=== PATIENT | female | born 1970 | race Caucasian/White ===

== ENCOUNTER 2018-10-09 20:24 | Emergency (ER) | payer MEDICAID ==
[~2018-10-09] VITALS: Ht 165.1 cm; Wt 71.7 kg
[2018-10-09 20:27] VITALS: Ht 165.1 cm; Wt 71.7 kg
--- NOTE | 2018-10-09 21:27 | ERD ---
ER Documentation Chief Complaint Chief Complaint Hives to generalized body since yesterday +itchy. states took benadryl HPI 48-year-old female, previously healthy, presents to the emergency department, complaining of acute onset of generalized hives that started yesterday. The patient denies any possible culprit like new medications, suspicious food, chemical contacts. The patient denies shortness of breath, no sore throat, no difficulty swallowing. The patient took Benadryl this morning without improvement of the symptoms. ROS All systems reviewed and are negative except as per history of present illness. Medications Home Meds Active Scripts Diphenhydramine Hcl* (Benadryl*) 50 Mg Cap, 50 MG PO Q6H PRN for ITCHING/RASH, #15 CAP Prov:GHADA POLANCO MD 10/09/18 Prednisone* (Prednisone*) 20 Mg Tab, 40 MG PO DAILY for 5 Days, TAB Prov:GHADA POLANCO MD 10/09/18 Allergies Allergies: Coded Allergies: penicillin G (Unverified Allergy, Unknown, 10/09/18) PMhx/Soc History of Surgery: Yes (c section) Anesthesia Reaction: No Hx Neurological Disorder: No Hx Respiratory Disorders: No Hx Cardiac Disorders: No Hx Psychiatric Problems: No Hx Miscellaneous Medical Probl: No Hx Alcohol Use: No Hx Substance Use: No Hx Tobacco Use: No Smoking Status: Never smoker FmHx Family History: No diabetes, No coronary disease Physical Exam Vitals Vital Signs Date Temp Pulse Resp B/P (MAP) Pulse Ox O2 O2 Flow FiO2 Time Delivery Rate 10/09/18 97.8 72 18 140/79 97 20:27 (99) Physical Exam Const: No acute distress Head: Atraumatic Eyes: Normal Conjunctiva ENT: Normal External Ears, Nose and Mouth. Neck: Full range of motion. No meningismus. Resp: Clear to auscultation bilaterally Cardio: Regular rate and rhythm, no murmurs Abd: Soft, non tender, non distended. Normal bowel sounds Skin: Diffuse, generalized urticarial rash. Back: No midline or flank tenderness Ext: No cyanosis, or edema Neur: Awake and alert Psych: Normal Mood and Affect Results 24 hrs Current Medications Medications Dose Sig/Radha Start Time Status Last (Trade) Ordered Route PRN Stop Time Admin Dose Reason Admin 8 mg ONCE ONCE 10/09/18 DC 10/09/18 Dexamethasone IM 21:30 10/09/18 21:34 (Decadron) 21:31 50 mg ONCE ONCE 10/09/18 DC 10/09/18 Diphenhydrami IM 21:30 10/09/18 21:35 ne HCl 21:31 (Benadryl) Ranitidine 300 mg ONCE ONCE 10/09/18 DC 10/09/18 HCl PO 21:30 10/09/18 21:33 (Zantac) 21:31 Procedures/MDM Differential diagnosis include but not limited to: Viral exanthema, acute allergic reaction, autoimmune dermatitis, medication side effect, low suspicion for angioedema, anaphylactic shock, Moses-Zachary syndrome. Physical examination and clinical presentation consistent most likely with acute allergic urticaria During the ED course the patient remained hemodynamically stable stable, no new complaints. The patient received treatment with IM. steroids, IM Benadryl presenting overall improvement of the symptoms. Results and clinical impression discussed with the parent who agrees with management. The patient is stable to be treated outpatient and will be discharged home with a Rx for prednisone and Benadryl, some side effects of prescribed medications (headache, rash, nausea, vomiting, diarrhea, drowsiness, interactions with other medications) were reviewed. The patient was instructed to follow up with the primary care provider in the next 48h. If symptoms persist, worsen or new symptoms develop, then patient should return to the ED immediately. Instructions explained and given directly by me with acknowledgment and demonstrated understanding. Disclaimer: Inadvertent spelling and grammatical errors are likely due to EHR/dictation software use and do not reflect on the overall quality of patient care. Also, please note that the electronic time recorded on this note does not necessarily reflect the actual time of the patient encounter. Departure Diagnosis: Primary Impression: Acute urticaria Condition: Stable Additional Instructions: Muchas vito por [facility] para borrero servicio. Esperamos que en borrero visita a la daly de emergencia borrero problema medico haya sido solucionado y que se sienta mucho mejor. Para estar seguros que borrero mejoria sigue en proceso, le pedimos el favor de hacer wendie nohemi de seguimiento medico con borrero doctor primario en los proximos 2-4 waggoner. Lleve con usted estos documentos y las medicinas recetadas. Si ketan sintomas empeoran, NO SE ESPERE, por favor regrese a daly de emergencia INMEDIATAMENTE. En rinku que usted no tenga un mdico de atencin primaria: Llame al mdico o clnica comunitaria de referencia que aparece abajo jessica las horas de consultorio para hacer wendie nohemi para que le vean. CLINICAS: [facility] [id number] [facility] [phone] [facility] [phone] [facility] [phone] [facility] [phone] [id number] [facility] [phone] GHADA LEE MD Oct 09, 2018 21:27
[2018-10-09] MEDS ORDERED: RANITIDINE 150 MG TAB PO ONE (21:30)
[2018-10-09] MEDS ORDERED: DIPHENHYDRAMINE 50 MG INJ IM ONE (21:30)
[2018-10-09] MEDS ORDERED: DEXAMETHASONE 10 MG/ML 1 ML INJ IM ONE (21:30)
[2018-10-09] MEDS ORDERED: PRED20TA PO (21:57)
[2018-10-09] MEDS ORDERED: BEN50 PO (21:57)
[2018-10-09 22:17] VITALS: BP 140/71; PULSE 67; RESP 18
== END 2018-10-09 22:18 | disposition home or self-care (01) ==
LOC: FTE 20:24
DX: L50.9 Urticaria, unspecified (principal)
CPT/HCPCS: 96372; J1100; J1200; Z7502; Z7610